=== PATIENT | male | born 1990 | race Caucasian/White ===

== ENCOUNTER 2024-03-03 10:59 | Inpatient (IN) | payer OTHER ==
[2024-03-03 11:43] VITALS: BMI 26.4
[2024-03-03] MEDS ORDERED: Ondansetron PF 4 MG/2 ML Vial IVP PRN (11:48)
[2024-03-03] MEDS ORDERED: Ondansetron ODT 4 MG TAB PO PRN (11:48)
[2024-03-03] MEDS ORDERED: Acetaminophen 650 MG Suppository PR PRN (11:48)
[2024-03-03] MEDS ORDERED: Pantoprazole 80 MG in Sodium Chloride 0.9% 100 ML IVPB SCH (12:00)
[2024-03-03] MEDS: Sodium Chloride 0.9% 1,000 ML IV SCH (12:40)
[2024-03-03] MEDS: Cyclobenzaprine 10 MG TAB PO SCH (13:03)
[2024-03-03 14:20] LABS: Hemoglobin 7.2 g/dL (14.0-18.0)
[2024-03-03] MEDS: Pantoprazole 80 MG, Admixture Fee 1 EACH in Sodium Chloride 0.9% 100 ML IVPB SCH (16:36)
[2024-03-03 19:06] LABS: Hematocrit 20.4 % (42.0-52.0); Hemoglobin 6.3 g/dL (14.0-18.0)
[2024-03-03] MEDS ORDERED: Pantoprazole 40 MG VIAL IVP SCH (21:00)
[2024-03-03] MEDS: Cyclobenzaprine 10 MG TAB PO PRN (21:40)
[2024-03-04 00:40] LABS: Hematocrit 20.1 % (42.0-52.0); Hemoglobin 6.4 g/dL (14.0-18.0)
[2024-03-04] MEDS: Octreotide Acetate 1,250 MCG in Sodium Chloride 0.9% 250 ML 250 ML IVPB SCH (02:47)
[2024-03-04 06:01] LABS: Hematocrit 21.4 % (42.0-52.0); Hemoglobin 6.7 g/dL (14.0-18.0); Mean Corpuscular HGB CONC 31.3 g/dL (32.0-36.0); Mean Corpuscular Hemoglobin 27.2 pg (27.0-31.0); Platelet Count 142 10x3/uL (130-400); RBC Distribution Width 18.2 % (11.5-14.5); Red Blood Cell (RBC) Count 2.46 mill/uL (4.70-6.10)
[2024-03-04 06:13] LABS: Alcohol Less than 10.0 mg/dL (Less than 10)
[2024-03-04 06:15] LABS: Phosphorus 4.2 mg/dL (2.3-4.7)
[2024-03-04 06:17] LABS: Immunoglob - G (Total IgG) 658 mg/dL (540-1822); Immunoglob - M (Total IgM) 77 mg/dL (22-240)
[2024-03-04 06:17] LABS: ALT (SGPT) 12 U/L (8-55); AST (SGOT) 46 U/L (5-34); Alkaline Phosphatase 101 U/L (40-110); Anion Gap 8 mmol/L (10-20); BUN (Urea Nitrogen) 20 mg/dL (8.9-20.6); Bilirubin, Total 2.1 mg/dL (0.2-1.2); Calc. Creatinine Clearance 73 mL/min (70-130); Calcium 7.1 mg/dL (7.8-10.44); Carbon Dioxide 17 mmol/L (22-29); Chloride 119 mmol/L (98-107); Estimated GFR 49; Globulin 1.9 g/dL (2.4-3.5); Glucose 94 mg/dL (70-105); Iron Binding Capacity, Total 238 mcg/dL (261-462); Magnesium 1.5 mg/dL (1.6-2.6); Potassium 4.6 mmol/L (3.5-5.1); Protein, Total 3.9 g/dL (6.0-8.3); Sodium 139 mmol/L (136-145)
[2024-03-04 06:29] LABS: Anisocytosis SLIGHT = 6-15 cells HPF (0-5); Band 6 % (5-11); Elliptocytes SLIGHT = 2-5 cells HPF (0-1); Hypochromia SLIGHT = 6-15 cells HPF (0-5); Large Platelets 1.9 % (0-5); Lymphocytes 16 % (21-51); Neutrophil 78 % (42-75); Platelet Adequacy Comment Platelets Normal; Poikilocytosis SLIGHT = 6-15 cells HPF (0-5); Polychromasia SLIGHT = 2-3 cells HPF (0-2); Schistocytes SLIGHT = 2-5 cells HPF (0-1)
[2024-03-04] MEDS ORDERED: PROPOFOL 40 ML ONE (08:15)
[2024-03-04] MEDS ORDERED: fentaNYL 50 mcg/mL 1 mL Vial ONE (08:16)
[2024-03-04] MEDS ORDERED: cefTRIAXone (ROCEPHIN) 1 GM VIAL ONE (08:20)
[2024-03-04] MEDS ORDERED: Sodium Chloride 0.9% 100 ML ONE (08:20)
[2024-03-04] MEDS ORDERED: Promethazine HCl 25 MG/ML VIAL IM PRN (08:47)
[2024-03-04] MEDS ORDERED: Ondansetron HCl/PF 4 MG/2 ML Vial IVP PRN (08:47)
[2024-03-04 08:48] LABS: Hep C IgG Ab NONREACTIVE S/CO (NonReactive); Hep C Index 0.05 S/CO (0-0.79)
[2024-03-04 08:50] LABS: Ferritin 15.63 ng/mL (22-322)
[2024-03-04] MEDS: cefTRIAXone\\ROCEPHIN 1 GM in Sodium Chloride 0.9% 100 ML IVPB SCH (09:43)
[2024-03-04 13:08] LABS: Hematocrit 23.6 % (42.0-52.0); Hemoglobin 7.4 g/dL (14.0-18.0); Platelet Count 129 10x3/uL (130-400)
[2024-03-04] MEDS: Acetaminophen 325 MG TAB PO PRN (21:40)
[2024-03-04] MEDS: Lidocaine 4% Patch TD SCH (22:22)
[2024-03-04] MEDS ORDERED: HYDROcodone/Acetaminophen 5/325 mg Tablet PO PRN (23:48)
[2024-03-05] MEDS: HYDROcodone/Acetaminophen 5/325 mg Tablet PO PRN
[2024-03-05 06:12] LABS: Hematocrit 21.5 % (42.0-52.0); Hemoglobin 6.7 g/dL (14.0-18.0); Mean Corpuscular HGB CONC 31.2 g/dL (32.0-36.0); Mean Corpuscular Hemoglobin 27.3 pg (27.0-31.0); Mean Corpuscular Volume 87.8 fL (78.0-98.0); Platelet Count 126 10x3/uL (130-400); RBC Distribution Width 17.3 % (11.5-14.5); Red Blood Cell (RBC) Count 2.45 mill/uL (4.70-6.10)
[2024-03-05] MEDS: Pantoprazole 40 MG VIAL IVP SCH (09:16)
[2024-03-05] MEDS: Methocarbamol 500 MG TAB PO SCH (11:41)
[2024-03-05] MEDS: Transdermal Patch Removal TOP SCH (12:19)
[2024-03-05 12:29] LABS: ANA Symphony (Qualitative) Negative (Negative); ANA Symphony (Quantitative) 0.2 Ratio (< 0.7 Negative); EliA Vaculitis New Method **** NEW METHOD ****; Mitochondrial Ab 0.6 U/mL (<4 Negative); dsDNA IgG Antibody 6.3 IU/mL (<10 Negative)
[2024-03-05 19:04] LABS: Hematocrit 23.8 % (42.0-52.0); Hemoglobin 7.6 g/dL (14.0-18.0)
[2024-03-05] MEDS: Methocarbamol 500 MG TAB PO PRN (20:21)
[2024-03-06 06:21] LABS: Hematocrit 23.5 % (42.0-52.0); Hemoglobin 7.6 g/dL (14.0-18.0); Mean Corpuscular HGB CONC 32.3 g/dL (32.0-36.0); Mean Corpuscular Hemoglobin 28.1 pg (27.0-31.0); Platelet Count 122 10x3/uL (130-400); RBC Distribution Width 17.7 % (11.5-14.5)
[2024-03-06 06:36] LABS: Anion Gap 6 mmol/L (10-20); BUN (Urea Nitrogen) 13 mg/dL (8.9-20.6); Calc. Creatinine Clearance 123 mL/min (70-130); Calcium 7.4 mg/dL (7.8-10.44); Carbon Dioxide 18 mmol/L (22-29); Chloride 117 mmol/L (98-107); Estimated GFR 91; Glucose 89 mg/dL (70-105); Potassium 4.2 mmol/L (3.5-5.1); Sodium 137 mmol/L (136-145)
[2024-03-06 09:02] VITALS: BP 133/76; TEMP 97.7
== END 2024-03-06 11:50 | disposition home or self-care (01) | DRG 812 ==
LOC: T4-B 10:59 → OBSVTOIN 03-04 14:08
PROVIDERS: ADMIT Family Medicine; ATTEND Internal Medicine
PROC: 0DJ08ZZ Inspection of Upper Intestinal Tract, Via Natural or Artificial Opening Endoscopic (ICD-10-PCS; principal; 2024-03-04)
PROC: 30233N1 Transfusion of Nonautologous Red Blood Cells into Peripheral Vein, Percutaneous Approach (ICD-10-PCS; 2024-03-04)
DX: D50.9 Iron deficiency anemia, unspecified (principal); K76.6 Portal hypertension; N17.9 Acute kidney failure, unspecified; K70.30 Alcoholic cirrhosis of liver without ascites; M62.830 Muscle spasm of back; F10.10 Alcohol abuse, uncomplicated; M51.35 Other intervertebral disc degeneration, thoracolumbar region; M51.36 Other intervertebral disc degeneration, lumbar region; M51.37 Other intervertebral disc degeneration, lumbosacral region; K31.89 Other diseases of stomach and duodenum; Z79.899 Other long term (current) drug therapy
CPT/HCPCS: 36415; 36430; 72072; 72100; 80048; 80053; 80307; 82105; 82390; 82728; 83516; 83550; 83735; 84100; 85014; 85018; 85027; 86015; 86038; 86225; 86803; 86850; 86900; 86901; 96374; 96375; 96376; C9113; G0378; J0696; J2354; J2704; J3010; J3490; J7050; P9016